=== PATIENT | female | born 1990 | race Caucasian/White ===

== ENCOUNTER → 2018-12-29 21:53 | Outpatient (CLI) | payer BC, SELFPAY ==
[2018-11-12 18:13] VITALS: BMI 20.5
[2018-12-29 22:22] LABS: Thyroid Stim Hormone (TSH) 0.66 uIU/mL (0.358-3.74)
== END ==
PROVIDERS: Referring Provider Nurse Practitioner; Visit Provider Nurse Practitioner
DX: E03.9 Hypothyroidism, unspecified (principal)
CPT/HCPCS: 84443